=== PATIENT | female | born 1985 | race Caucasian/White ===

== ENCOUNTER 2016-11-05 15:40 | Emergency (ER) | payer MEDICAID ==
[2016-02-21 13:57] VITALS: BMI 60.2
[~2016-11-05 15:40] MED LIST: ALDACTONE25 MG PO; BACTRIM DS TABL1 TAB PO; BAYER CHEWABLE81 MG PO; CARAFATE1 G PO; CYMBALTA20 MG PO; HYZAAR 100-25 T1 TAB PO; LEVOXYL100 MCG PO; METOPROLOL TART50 MG PO; SPECTAZOLE 1 %15 GM TP; VICTOZA0.6 MG/0.1 SQ; WELLBUTRIN100 MG PO; ZANTAC150 MG PO; ZOLOFT50 MG PO
== END 2016-11-05 20:49 | disposition home or self-care (01) ==
LOC: D.ER 15:40
DX: S92.902A Unspecified fracture of left foot, initial encounter for closed fracture (principal); W01.0XXA Fall on same level from slipping, tripping and stumbling without subsequent striking against object, initial encounter; Y93.89 Activity, other specified; Y92.219 Unspecified school as the place of occurrence of the external cause; F41.9 Anxiety disorder, unspecified; Z86.73 Personal history of transient ischemic attack (TIA), and cerebral infarction without residual deficits; E11.9 Type 2 diabetes mellitus without complications; I10 Essential (primary) hypertension

== ENCOUNTER → 2016-11-12 13:09 | Outpatient (CLI) | payer MEDICAID ==
[2016-02-21 13:57] VITALS: BMI 60.2
[~2016-11-12 13:09] MED LIST changes: +ELIQUIS5 MG PO
== END | disposition home or self-care (01) ==
LOC: D.CT 13:09
DX: S92.212A Displaced fracture of cuboid bone of left foot, initial encounter for closed fracture (principal)

== ENCOUNTER 2016-11-15 16:59 | Inpatient (IN) | payer MEDICAID ==
[~2016-11-15] VITALS: Ht 175.3 cm; Wt 187.2 kg
--- NOTE | ~2016-11-15 | CN ---
PATIENT NAME:SYLVESTER NOLEN MEDICAL RECORD: [id number] : 87 LOCATION:[id number] ADMIT DATE: 11/15/16 ACCOUNT: [id number] CONSULTING PHYSICIAN: BRIANNE PATEL MD REFERRING PHYSICIAN: CHAKA JEREZ MD DATE OF CONSULTATION: 11/16/2016 CONSULT REQUESTING PHYSICIAN: Chaka Jerez MD REASON FOR CONSULTATION: Saddle embolus, DVT. HISTORY OF PRESENT ILLNESS: Ms. Nolen is a 30-year-old female; 10-11 days ago, she fractured her left ankle and sprained the right ankle, so she was mainly bed bound and sitting in her recliner. Yesterday, she felt some shortness of breath and the patient went to the bathroom where she became lightheaded and almost blackout. The patient was brought into the ER, workup showed that she has multiple emboli and also saddle embolus. REVIEW OF SYSTEMS: Mainly in the history of present illness. PAST MEDICAL HISTORY: 1. History of cerebrovascular accident 20 years ago. 2. Hypertension. 3. Cardiac workup in April 2015. 4. Suspect sleep apnea. PAST SURGICAL HISTORY: 1. Cholecystectomy. 2. . 3. Kidney stone removed. ALLERGIES: CODEINE AND MORPHINE. PRESENT MEDICATIONS: She is on heparin IV. Her other medication is reviewed. PERSONAL AND SOCIAL HISTORY: The patient is a nonsmoker, nondrinker. FAMILY HISTORY: Unknown. PHYSICAL EXAMINATION: GENERAL: Now, the patient is lying comfortably in bed. She is not in any acute distress. VITAL SIGNS: The blood pressure is 114/54, pulse is 85, respiration is 26, temperature 97.3, SpO2 is 94% on 2 liter nasal cannula. HEENT: Conjunctivae is pink, sclerae nonicteric. NECK: Supple, no JVD. CHEST: The chest excursion is minimal on both sides. No wheeze, no rales. HEART: Rhythm regular, normal sound, no murmur. ABDOMEN: Soft. Bowel sounds present. No hepatosplenomegaly. RECTAL: Deferred. EXTREMITIES: No cyanosis, no clubbing. There is 1+ pedal edema in the left. CENTRAL NERVOUS SYSTEM: The cranial nerves II-XII are intact. The gait was not tested. IMAGING: CTA of the chest: There is a saddle embolus. There are bilateral CONSULT REPORT [id number] SYLVESTER NOLEN multiple emboli. Ultrasound of the lower extremity showed DVT of the left lower extremity. OTHER LABORATORY DATA: CBC: WBC 8.3, hemoglobin 14.1, hematocrit 41.9, the platelet count 282. Chemistry: Sodium 140, potassium is 5.6, BUN is 16, creatinine 0.3. Glucose 107. The fibrinogen level is 4.12. INR is 1.05, PTT was 30.7. IMPRESSION: 1. Acute hypoxic respiratory failure. 2. Submassive pulmonary embolism. 3. Near syncopal episode secondary to pulmonary embolism. 4. Deep venous thrombosis of left lower extremity. 5. Fracture of the left ankle. 6. Hypertension. 7. Morbid obesity. 8. Remote history of cerebrovascular accident. RECOMMENDATION: We will hold the heparin when the tPA has been started. We will keep the heparin for 5 days and start her on p.o. medication. Supplemental oxygen as required. Follow up labs and chest radiograph daily. Check factor V Leiden, other coagulopathy factor. Dr. Jerez, once again thanks for involving me in the care of Ms. Nolen. TRANSINT:[id number] Voice Confirmation ID: [id number] DOCUMENT ID: [id number] BRIANNE PATEL MD CC: CHAKA JEREZ MD [id number] DICTATION DATE: 11/16/16 154 ENTREPRENEURSHIP PROGRAM DIRECTOR: 11/16/16 1637 ADM IN [facility] [address] [id number]
[~2016-11-15 16:59] MED LIST changes: -ELIQUIS5 MG PO
[2016-11-15 18:26] LABS: BASOPHILS 0.2 % (0.0-2.0); EOSINOPHILS 0.8 % (0-7); HEMATOCRIT 44.2 % (36.0-48.0); HEMOGLOBIN 14.9 g/dL (12-16); IMMATURE GRANULOCYTES 0.3 % (0-5); LYMPHOCYTES 20.6 % (15-50); MCH 30.4 pg (26.0-34.0); MCHC 33.7 g/dL (31.0-37.0); MCV 90.2 fL (80.0-100.0); MEAN PLATELET VOLUME 9.7 fL (7.4-10.4); MONOCYTES 6.5 % (2-11); NEUTROPHILS 71.6 % (40-80); PLATELET COUNT 260 10x3/uL (130-400); RDW 12.8 % (11.5-14.5); WBC 8.8 10x3/uL (4.8-10.8)
[2016-11-15 18:41] LABS: ALBUMIN 3.5 g/dL (3.4-5.0); ALKALINE PHOSPHATASE 61 U/L (46-116); ALT (SGPT) 31 U/L (10-68); BILIRUBIN - TOTAL 0.26 mg/dL (0.2-1.3); CALC OSMOLALITY 287 mosm/kg (275-300); CALCIUM 9.2 mg/dL (8.5-10.1); CARBON DIOXIDE 22.2 mmol/L (21.0-32.0); CHLORIDE - SERUM 105 mmol/L (98-107); CREATININE - SERUM 0.6 mg/dL (0.6-1.3); GLUCOSE 137 mg/dL (74-106); POTASSIUM - SERUM 4.6 mmol/L (3.5-5.1); PROTEIN - SERUM 7.6 g/dL (6.4-8.2); SODIUM 142 mmol/L (136-145); UREA NITROGEN 21 mg/dL (7-18); eGFR NON AFRICAN AMERICAN > 90 mL/min (90-120)
[2016-11-15 19:00] LABS: THYROID STIMULATING HORMONE 4.55 uIU/mL (0.36-3.74)
[2016-11-15 19:02] LABS: TROPONIN-I 0.182 ng/mL (0.000-0.060)
[2016-11-16] VITALS (23 sets, daily range): BP systolic 96–143; BP diastolic 54–109; Ht 175.3 cm; Wt 187.2 kg
--- NOTE | 2016-11-16 01:10 | NUR ---
RECEIVED TO ROOM CV6 VIA STRETCHER FROM EMERGENCY DEPARTMENT. DX: PULMOMARY EDEMA. RIGHT HAND PERIPHERAL IV PATENT. O2 AT 2L/NC ON. O2 SAT=94%. B/P=143/85, HR=90, R=18. SHE HAS A FRACTURED LEFT FOOT WITH IMMOBILIZER ON. WILL CONTINUE TO MONITOR.
--- NOTE | 2016-11-16 02:29 | NUR ---
Susu.Alvaro CRUZ CALLED TO GET HEPARIN GTT ORDERED IN THE COMPUTER APPROPRIATELY AND WILL ASK MD ABOUT FOLLOWING HEPARIN GTT PROTOCOL.
--- NOTE | 2016-11-16 02:50 | NUR ---
ASSISTED UP TO BATHROOM WITH ASSIST. SOB WITH EXERTION. SLOW TO GET UP AND DOWN. BACK TO BED AND RECONNECTED TO MONITORING EQUIPMENT.
--- NOTE | 2016-11-16 04:00 | NUR ---
LAYING ON LEFT SIDE. NO ACUTE DISTRESS NOTED.
--- NOTE | 2016-11-16 06:00 | NUR ---
INFORMED OF UPCOMING BLOOD DRAW. DENIES NEEDS. WILL CONTINUE TO MONITOR.
--- NOTE | 2016-11-16 06:25 | NUR ---
PHELBO AT BEDSIDE TO DRAW AM LABS. VISITOR AT BEDSIDE. WILL MONITOR.
[2016-11-16 06:51] LABS: BASOPHILS 0.3 % (0.0-2.0); EOSINOPHILS 1.1 % (0-7); HEMATOCRIT 44.6 % (36.0-48.0); IMMATURE GRANULOCYTES 0.2 % (0-5); LYMPHOCYTES 37.2 % (15-50); MCH 31.1 pg (26.0-34.0); MCHC 33.6 g/dL (31.0-37.0); MCV 92.3 fL (80.0-100.0); MEAN PLATELET VOLUME 9.7 fL (7.4-10.4); MONOCYTES 7.8 % (2-11); NEUTROPHILS 53.4 % (40-80); PLATELET COUNT 248 10x3/uL (130-400); RBC 4.83 10x6/uL (4.00-5.40); WBC 8.8 10x3/uL (4.8-10.8)
[2016-11-16 07:15] LABS: CALC OSMOLALITY 279 mosm/kg (275-300); CALCIUM 9.2 mg/dL (8.5-10.1); CHLORIDE - SERUM 102 mmol/L (98-107); GLUCOSE 107 mg/dL (74-106); SODIUM 140 mmol/L (136-145); UREA NITROGEN 16 mg/dL (7-18)
[2016-11-16 07:16] LABS: CREATININE - SERUM 0.3 mg/dL (0.6-1.3); POTASSIUM - SERUM 5.6 mmol/L (3.5-5.1); eGFR NON AFRICAN AMERICAN > 90 mL/min (90-120)
[2016-11-16 07:22] LABS: APTT 29.4 SECONDS (22.8-39.4); INR 0.98 (0.85-1.17); PROTIME 12.9 SECONDS (11.6-15.0)
--- NOTE | 2016-11-16 08:22 | NUR ---
NOTED LAB RESULTS FOR PTT IS AT 29.4, PT IS ON HEPARIN DRIP PROTOCOL. PROTOCOL 3000 U BOLUS ADMIN VIA PUMP PER PROROCOL. ALSO RATE INCREASED AT THIS TIME FROM 1000U/HOUR TO 1200 U/HOUR. WILL SCHEDULE PTT REDRAW FOR 1430 FOR RECHECK PER PROTOCOL.
--- NOTE | 2016-11-16 09:22 | NUR ---
SPOKE WITH DR PATEL, NOTED NEW ORDER FOR BILATERAL ULTRASOUND TO LOWER EXTREMITIES X 2. [address] ORDER.
--- NOTE | 2016-11-16 09:27 | NUR ---
FAMILY AT BEDSIDE. UPDATE GIVEN. NO ACUTE DISTRESS NOTED. WILL CONTINUE PLAN OF CARE.
--- NOTE | 2016-11-16 11:00 | NUR ---
1100 REASSESSMENT PERFORMED. NO CHANGE.
--- NOTE | 2016-11-16 11:53 | NUR ---
SPOKE WITH DR JEREZ, NOTED NEW ORDER TO START TPA AND DC HEPARIN DRIP. ORDER PLACED AT THIS TIME. WILL CONTINUE PLAN OF CARE.
--- NOTE | 2016-11-16 13:20 | NUR ---
TPA INITIATED ORDERED AT THIS TIME, HEPARIN DRIP DC AT THIS TIME PER ORDERS. PT SITTING UP IN BED AWAKE, DENIES ANY NEEDS. WILL CONTINUE PLAN OF CARE.
[2016-11-16 13:23] LABS: BASOPHILS 0.2 % (0.0-2.0); EOSINOPHILS 1.1 % (0-7); HEMATOCRIT 41.9 % (36.0-48.0); HEMOGLOBIN 14.1 g/dL (12-16); IMMATURE GRANULOCYTES 0.2 % (0-5); LYMPHOCYTES 33.6 % (15-50); MCH 31.1 pg (26.0-34.0); MCHC 33.7 g/dL (31.0-37.0); MCV 92.3 fL (80.0-100.0); MEAN PLATELET VOLUME 9.8 fL (7.4-10.4); MONOCYTES 7.6 % (2-11); NEUTROPHILS 57.3 % (40-80); PLATELET COUNT 282 10x3/uL (130-400); RBC 4.54 10x6/uL (4.00-5.40); RDW 12.9 % (11.5-14.5); WBC 8.3 10x3/uL (4.8-10.8)
[2016-11-16 14:24] LABS: APTT 30.7 SECONDS (22.8-39.4); INR 1.05 (0.85-1.17); PROTIME 13.5 SECONDS (11.6-15.0)
--- NOTE | 2016-11-16 14:26 | NUR ---
UP IN BED AWAKE AT THIS TIME WATCHING TV. DENIES ANY NEEDS. WILL CONTINUE PLAN OF CARE.
--- NOTE | 2016-11-16 14:30 | NUR ---
BED BATH ADMIN AT THIS TIME. NO ACUTE DISTRESS NOTED. WILL CONTINUE PLAN OF CARE.
--- NOTE | 2016-11-16 14:40 | NUR ---
SPOKE WITH DR CANADA TO NOTIFY OF CONSULT, NOTED HE STATED HE IS AWARE OF CONSULT. NO NEW ORDERS.
--- NOTE | 2016-11-16 15:08 | NUR ---
NEW ORDER PER DR PATEL. CHANGE CURRENT ORDER OF TPA TO 100MG/100ML; GIVE 10ML BOLUS NOW THEN ADMIN THE REMAINING 90MG OVER 2 HOURS, RECHECK PTT WHEN COMPLETE AND CHECK Q4H UNTIL PTT IS UNDER 80. WHEN HEPARIN DRIP IS RESTARTED, START RATE AT 1200 U WITH NO BOLUS. WILL PLACE ORDERS.
--- NOTE | 2016-11-16 15:11 | NUR ---
REASSESSMENT PERFORMED. NO CHANGE NOTED. PT DENIES ANY NEEDS. NO ACUTE DISTRESS NOTED. WILL CONTINUE PLAN O FCARE.
--- NOTE | 2016-11-16 17:01 | NUR ---
TPA COMPLETE AT THIS TIME. STAT PTT ORDERED AT THIS TIME PER ORDERS. WILL RESTART HEPARIN DRIP AT 1200 UNITS PER ORDERS AFTER PTT DRAW BY LAB.
--- NOTE | 2016-11-16 17:27 | NUR ---
STAT PTT NOT DRAWNED AT THIS TIME BY LAB. CALLED LAB TO SEE WHEN THEY WILL DRAW STAT LAB, THEY STATED THEY WOULD BE HERE TO DRAW. WILL START HEPARIN DRIP AFTER LAB DRAWS STAT PTT.
--- NOTE | 2016-11-16 17:42 | NUR ---
CALLED LAB AGAIN AT THIS TIME TO HAVE STAT PTT DRAWN AT THIS TIME. NOTED LAB STATED THEY WERE ON THEIR WAY AT THIS TIME TO DRAW LAB.
[2016-11-16 18:07] LABS: BASOPHILS 0.3 % (0.0-2.0); EOSINOPHILS 1.2 % (0-7); HEMATOCRIT 45.1 % (36.0-48.0); HEMOGLOBIN 14.8 g/dL (12-16); IMMATURE GRANULOCYTES 0.3 % (0-5); LYMPHOCYTES 20.2 % (15-50); MCH 30.7 pg (26.0-34.0); MCHC 32.8 g/dL (31.0-37.0); MCV 93.6 fL (80.0-100.0); MEAN PLATELET VOLUME 9.5 fL (7.4-10.4); MONOCYTES 10.1 % (2-11); NEUTROPHILS 67.9 % (40-80); PLATELET COUNT 217 10x3/uL (130-400); RBC 4.82 10x6/uL (4.00-5.40); RDW 12.7 % (11.5-14.5); WBC 11.9 10x3/uL (4.8-10.8)
--- NOTE | 2016-11-16 18:14 | NUR ---
UP IN BED AWAKE AT THIS TIME VISITING WITH FAMILY. NO ACUTE DISTRESS NOTED. WILL CONTINUE PLAN OF CARE.
[2016-11-16 18:18] LABS: INR 1.34 (0.85-1.17); PROTIME 16.5 SECONDS (11.6-15.0)
--- NOTE | 2016-11-16 18:22 | NUR ---
LAB DRAWN HAS BEEN DONE. HEPARIN DRIP STARTED AT THIS TIME PER ORDERS. WILL CONTINUE PLAN OF CARE.
--- NOTE | 2016-11-16 19:10 | NUR ---
ASSESSMENT COMPLETED. ALERT AND ORIENTED TO PERSON, PLACE AND TIME. O2 @ 2L VIA NC, PRACHI LUNGS DIMINISHED IN THE BASES. RT SHOULDER PIV, SITE WITHOUT REDNESS OR EDEMA, SL. RT HAND PIV, SITE WITHOUT REDNESS OR EDEMA WITH HEPARIN @ 1200 UNITS/HR VIA PUMP. DENIES ANY PAIN OR NEEDS AT THIS TIME. SR ON THE MONITOR.
--- NOTE | 2016-11-16 19:14 | NUR ---
SCANT AMOUNT OF BRIGHT RED BLOOD TO LETTY AREA. ASSESSED AREA, NOTED BLEEDING HAD COME FROM A SMALL SCRATCH TO OUTSIDE VAGINAL AREA. PT IS ON ANTICOAGULANTS. URINATED VIA BEDPAN. LETTY CARE PROVIDED. TOTAL BED CHANGE PROVIDED. NO ACUTE DISTRESS NOTED. WILL CONTINUE PLAN OF CARE.
--- NOTE | 2016-11-16 21:00 | NUR ---
FAMILY AT BEDSIDE. UPDATE GIVEN.
--- NOTE | 2016-11-16 21:40 | NUR ---
UP TO BSC, TOLLERATED WELL.
--- NOTE | 2016-11-16 23:00 | NUR ---
REASSESSMENT COMPLETED. DENIES ANY NEEDS AT THIS TIME. SR ON THE MONITOR.
[2016-11-17] VITALS (25 sets, daily range): BP systolic 89–152; BP diastolic 48–85
--- NOTE | 2016-11-17 00:53 | NUR ---
LAB HERE FOR BLOOD DRAW.
[2016-11-17 01:11] LABS: BASOPHILS 0.5 % (0.0-2.0); EOSINOPHILS 1.7 % (0-7); HEMATOCRIT 41.3 % (36.0-48.0); HEMOGLOBIN 13.7 g/dL (12-16); IMMATURE GRANULOCYTES 0.4 % (0-5); LYMPHOCYTES 36.4 % (15-50); MCH 30.6 pg (26.0-34.0); MCHC 33.2 g/dL (31.0-37.0); MCV 92.4 fL (80.0-100.0); MEAN PLATELET VOLUME 9.5 fL (7.4-10.4); PLATELET COUNT 221 10x3/uL (130-400); RBC 4.47 10x6/uL (4.00-5.40); RDW 12.7 % (11.5-14.5)
[2016-11-17 01:13] LABS: WBC 8.4 10x3/uL (4.8-10.8)
--- NOTE | 2016-11-17 01:29 | NUR ---
INCREASED HEPARIN GTT TO 1300 UNITS/HR VIA PUMP PER SS. WILL CONT TO MONITOR.
[2016-11-17 01:42] LABS: APTT 35.1 SECONDS (22.8-39.4); INR 1.21 (0.85-1.17); PROTIME 15.1 SECONDS (11.6-15.0)
--- NOTE | 2016-11-17 01:50 | NUR ---
NEW PTT RESULTS ARE 35. 3000 UNIT BOLUS OF HEPARIN INFUSED AND RATE INCREASED TO 1400 UNITS/HR VIA PUMP. WILL CONT TO MONITOR.
--- NOTE | 2016-11-17 03:00 | NUR ---
REASSESSMENT COMPLETED. DENIES ANY PAIN OR NEEDS AT THIS TIME. SR ON THE MONITOR.
--- NOTE | 2016-11-17 05:00 | NUR ---
EYES CLOSED, RESP EVEN AND UNLABORED. WILL CONT TO MONITOR.
--- NOTE | 2016-11-17 06:00 | NUR ---
FAMILY AT BEDSIDE. UPDATE GIVEN. WILL CONT TO MONITOR.
[2016-11-17 06:38] LABS: BASOPHILS 0.3 % (0.0-2.0); EOSINOPHILS 2.3 % (0-7); HEMATOCRIT 40.9 % (36.0-48.0); HEMOGLOBIN 13.5 g/dL (12-16); IMMATURE GRANULOCYTES 0.4 % (0-5); LYMPHOCYTES 33.6 % (15-50); MCH 30.5 pg (26.0-34.0); MCV 92.5 fL (80.0-100.0); MEAN PLATELET VOLUME 9.5 fL (7.4-10.4); MONOCYTES 8.3 % (2-11); NEUTROPHILS 55.1 % (40-80); PLATELET COUNT 218 10x3/uL (130-400); RBC 4.42 10x6/uL (4.00-5.40); RDW 12.7 % (11.5-14.5); WBC 7.5 10x3/uL (4.8-10.8)
[2016-11-17 06:45] LABS: APTT 33.8 SECONDS (22.8-39.4); INR 1.15 (0.85-1.17); PROTIME 14.5 SECONDS (11.6-15.0)
--- NOTE | 2016-11-17 06:48 | NUR ---
UP TO BSC. TOLLERATED WELL.
[2016-11-17 07:01] LABS: CALC OSMOLALITY 280 mosm/kg (275-300); CARBON DIOXIDE 27.2 mmol/L (21.0-32.0); CHLORIDE - SERUM 102 mmol/L (98-107); GLUCOSE 116 mg/dL (74-106); SODIUM 140 mmol/L (136-145); UREA NITROGEN 16 mg/dL (7-18)
[2016-11-17 07:05] LABS: CREATININE - SERUM 0.5 mg/dL (0.6-1.3); POTASSIUM - SERUM 3.7 mmol/L (3.5-5.1); eGFR NON AFRICAN AMERICAN > 90 mL/min (90-120)
--- NOTE | 2016-11-17 07:22 | NUR ---
UP IN BED AWAKE AT THIS TIME. DENIES ANY NEEDS. NO ACUTE DISTRESS NOTED. WILL CONTINUE PLAN OF CARE.
--- NOTE | 2016-11-17 09:16 | NUR ---
METOPROLOL HELD THIS AM, PULSE RATE NOTED RANGING FROM 57-63 AND BLOOD PRESSURE NOTED AT 109/62 MAP 77. HELD AT THIS TIME PER NURSING JUDGEMENT. WILL CONTINUE PLAN OF CARE.
--- NOTE | 2016-11-17 10:26 | NUR ---
SPOKE WITH DR JEREZ WHO REQUESTED PHARMACY TO BE CONTACTED TO SEE IF HER INSURANCE COVERS XARELTO OR ELIQUIS. WILL CONTACT PTS PHARMACY.
[2016-11-17 11:55] LABS: BASOPHILS 0.3 % (0.0-2.0); EOSINOPHILS 2.1 % (0-7); HEMATOCRIT 41.6 % (36.0-48.0); HEMOGLOBIN 13.9 g/dL (12-16); IMMATURE GRANULOCYTES 0.3 % (0-5); MCH 30.8 pg (26.0-34.0); MCHC 33.4 g/dL (31.0-37.0); MEAN PLATELET VOLUME 9.5 fL (7.4-10.4); MONOCYTES 6.8 % (2-11); NEUTROPHILS 63.5 % (40-80); PLATELET COUNT 224 10x3/uL (130-400); RBC 4.52 10x6/uL (4.00-5.40); RDW 12.6 % (11.5-14.5); WBC 7.2 10x3/uL (4.8-10.8)
[2016-11-17 12:24] LABS: APTT 35.5 SECONDS (22.8-39.4); INR 1.09 (0.85-1.17)
--- NOTE | 2016-11-17 14:02 | NUR ---
NOTED PTT RESTULTS OF 35.5. HEPARIN BOLUS ADMIN AT THIS TIME PER PROTOCOL ORDERS AND RATE INCREASED FROM 1600U/H TO 1800U/H PER PROTOCOL. BOLUS ADMIN PER PUMP. NO ACUTE DISTRESS NOTED. WILL CONTINUE PLAN OF CARE.
--- NOTE | 2016-11-17 14:11 | NUR ---
AWAKE IN BED AT THIS TIME. DENIES ANY NEEDS. NO ACUTE DISTRESS NOTED. WILL CONTINUE PLAN OF CARE.
--- NOTE | 2016-11-17 15:57 | NUR ---
NO CHANGE. VSS. NO COMPLAINT OF PAIN OR DISCOMFORT. WILL CONTINUE PLAN OF CARE.
--- NOTE | 2016-11-17 16:37 | NUR ---
UP IN BED WATCHING TV AND EATING SUPPER AT THIS TIME. DENIES ANY NEEDS. NO ACUTE DISTRESS NOTED. WILL CONTINUE PLAN OF CARE.
--- NOTE | 2016-11-17 17:19 | NUR ---
UP IN BED WATCHING TV AT THIS TIME. NO ACUTE DISTRESS NOTED. WILL CONTINUE PLAN FO CARE.
[2016-11-17 17:59] LABS: BASOPHILS 0.4 % (0.0-2.0); EOSINOPHILS 2.2 % (0-7); HEMATOCRIT 42.7 % (36.0-48.0); HEMOGLOBIN 14.3 g/dL (12-16); IMMATURE GRANULOCYTES 0.1 % (0-5); LYMPHOCYTES 26.3 % (15-50); MCH 31.1 pg (26.0-34.0); MCHC 33.5 g/dL (31.0-37.0); MCV 92.8 fL (80.0-100.0); MEAN PLATELET VOLUME 9.5 fL (7.4-10.4); MONOCYTES 7.7 % (2-11); NEUTROPHILS 63.3 % (40-80); PLATELET COUNT 238 10x3/uL (130-400); RDW 12.6 % (11.5-14.5)
[2016-11-17 18:11] LABS: APTT 35.3 SECONDS (22.8-39.4)
[2016-11-17 18:12] LABS: INR 0.98 (0.85-1.17); PROTIME 12.8 SECONDS (11.6-15.0)
--- NOTE | 2016-11-17 19:05 | NUR ---
SPOKE WITH PT PHARMACY ON [facility] AND NOTED INSURANCE COVERES BOTH XARELTO AND ELIQUIS AND ARE BOTH $4. THIS WAS DONE PER DR JEREZ REQUEST. DR JEREZ NOTIFIED. NO FURTHER ORDERS AT THIS TIME. WILL CONTINUEPLAN OF CARE.
--- NOTE | 2016-11-17 19:25 | NUR ---
Received patient awake in bed watching tv, Assessment completed per flowsheet. Patient is AO x4, demeanor is pleasant and cooperative. Eyes PERRLA @ 3mm with brisk response, sclera is white. S1/S2 noted with patient NSR on telemetry with HR 87, rhythmic and regular. Breathing is slightly shallow and unlabored, lung sounds diminished all lobes. O2 sat 96% on 2L via NC, no reported difficulty breathing. Abdomen is round and soft, bowel sounds active x4. Patient uses bedside commode with assistance, liquid yellow stool noted. All pulses palpable with cap refill <3 sec, full ROM all extremities. L foot fracture with brace, skin is warm to touch. 20g PIV noted R hand, patent with fluids infusing. Full bed bath/linen change performed, patient positioned for comfort. Denies pain or other needs at this time, all VSS and will continue to monitor.
--- NOTE | 2016-11-17 21:00 | NUR ---
Family at bedside for visitation, no questions from family at this time. All VSS and will continue to monitor.
--- NOTE | 2016-11-17 22:57 | NUR ---
Reassessment completed per flowsheet, patient resting in bed with eyes open. Patient NSR on telemetry with HR 74, rhythmic and regular. Breathing is even and effortless on 2L via NC, O2 sat 98%. All extremities warm to touch with pulses palpable, cap refill <3 sec. Patient assisted to bedside commode, 350ml liquid yellow stool noted. Patient denies pain or other needs at this time, all VSS and will continue to monitor.
[2016-11-17 23:55] LABS: BASOPHILS 0.2 % (0.0-2.0); EOSINOPHILS 1.8 % (0-7); HEMATOCRIT 40.4 % (36.0-48.0); HEMOGLOBIN 13.6 g/dL (12-16); IMMATURE GRANULOCYTES 0.2 % (0-5); LYMPHOCYTES 35.5 % (15-50); MCH 30.6 pg (26.0-34.0); MCHC 33.7 g/dL (31.0-37.0); MEAN PLATELET VOLUME 9.4 fL (7.4-10.4); MONOCYTES 7.3 % (2-11); PLATELET COUNT 252 10x3/uL (130-400); RBC 4.44 10x6/uL (4.00-5.40); RDW 12.6 % (11.5-14.5); WBC 8.1 10x3/uL (4.8-10.8)
[2016-11-18] VITALS (21 sets, daily range): BP systolic 92–134; BP diastolic 55–88
--- NOTE | 2016-11-18 00:05 | NUR ---
PTT resulted, Heparin protocol followed. 3000 unit bolus given and rate increased 200 units/hr. Will recheck at 0600.
[2016-11-18 00:06] LABS: APTT 35.5 SECONDS (22.8-39.4); INR 0.96 (0.85-1.17); PROTIME 12.6 SECONDS (11.6-15.0)
--- NOTE | 2016-11-18 01:00 | NUR ---
Patient resting in bed with eyes closed, breathing is even and unlabored. All VSS with no further needs at this time, will continue to monitor.
--- NOTE | 2016-11-18 03:03 | NUR ---
Reassessment completed per flowsheet, patient resting in bed with eyes closed. Patient NSR on telemetry with HR 72, rhythmic and regular. Breathing is shallow and unlabored on 2L via NC, O2 sat 100%. All extremities warm to touch with palpable pulses, cap refill <3 sec. Patient denies pain or other needs at this time, all VSS and will continue to monitor.
--- NOTE | 2016-11-18 05:05 | NUR ---
Patient resting in bed with eyes closed, breathing is slightly shallow and unlabored. Full bed bath/linen change performed, positioned for comfort. Patient denies pain or other needs at this time, all VSS and will continue to monitor.
--- NOTE | 2016-11-18 06:22 | NUR ---
APTT SAMPLE COLLECTED BY LAB AT 0620, WILL ADJUST HEPARIN WHEN RESULTED.
[2016-11-18 06:35] LABS: BASOPHILS 0.4 % (0.0-2.0); EOSINOPHILS 2.7 % (0-7); HEMATOCRIT 40.8 % (36.0-48.0); HEMOGLOBIN 13.6 g/dL (12-16); IMMATURE GRANULOCYTES 0.4 % (0-5); LYMPHOCYTES 32.9 % (15-50); MCH 30.6 pg (26.0-34.0); MCHC 33.3 g/dL (31.0-37.0); MCV 91.7 fL (80.0-100.0); MEAN PLATELET VOLUME 9.5 fL (7.4-10.4); MONOCYTES 7.3 % (2-11); NEUTROPHILS 56.3 % (40-80); PLATELET COUNT 233 10x3/uL (130-400); RBC 4.45 10x6/uL (4.00-5.40); RDW 12.5 % (11.5-14.5); WBC 7.9 10x3/uL (4.8-10.8)
[2016-11-18 06:44] LABS: APTT 35.7 SECONDS (22.8-39.4)
[2016-11-18 06:51] LABS: CALC OSMOLALITY 277 mosm/kg (275-300); CALCIUM 9.1 mg/dL (8.5-10.1); CARBON DIOXIDE 27.8 mmol/L (21.0-32.0); CHLORIDE - SERUM 100 mmol/L (98-107); GLUCOSE 123 mg/dL (74-106); POTASSIUM - SERUM 3.6 mmol/L (3.5-5.1); SODIUM 138 mmol/L (136-145); UREA NITROGEN 16 mg/dL (7-18)
[2016-11-18 06:53] LABS: CREATININE - SERUM 0.7 mg/dL (0.6-1.3); eGFR NON AFRICAN AMERICAN > 90 mL/min (90-120)
--- NOTE | 2016-11-18 07:30 | NUR ---
ASSUMED CARE OF PT. SHIFT ASSESSMENT COMPLETE. SEE FLOWSHEET FOR DETAILS. PT AWAKE AND ALERT. NO DISTRESS NOTED. AWAITING BREAKFAST.
--- NOTE | 2016-11-18 09:07 | NUR ---
FAMILY AT BEDSIDE FOR 0900 VISITATION. PT AWAKE, SITTING UP IN BED. NO DISTRESS NOTED.
--- NOTE | 2016-11-18 10:19 | NUR ---
NUTRITION MONITORING & EVAL CHART REVIEWED, PT VISIT. TOLERATING REG DIET. PT REPORTS GOOD PO INTAKE. RD FOLLOWING
--- NOTE | 2016-11-18 10:35 | NUR ---
PT ASSISTED UP TO BEDSIDE COMMODE. BM X1. URINE OUTPUT 500ML
--- NOTE | 2016-11-18 11:17 | NUR ---
SPOKE WITH DR MA, IF PTT STILL UNDER 40 AT NEXT DRAW, WANTS THE BOLUS GIVEN AND THEN CONTINUOUS RATE CHANGED TO 3000 UNITS/HR. DISCUSSED PT GOING TO FLOOR.
[2016-11-18 12:41] LABS: BASOPHILS 0.4 % (0.0-2.0); EOSINOPHILS 2.1 % (0-7); HEMATOCRIT 41.8 % (36.0-48.0); HEMOGLOBIN 13.8 g/dL (12-16); IMMATURE GRANULOCYTES 0.4 % (0-5); LYMPHOCYTES 31.8 % (15-50); MCH 30.4 pg (26.0-34.0); MCV 92.1 fL (80.0-100.0); MEAN PLATELET VOLUME 9.6 fL (7.4-10.4); MONOCYTES 6.6 % (2-11); NEUTROPHILS 58.7 % (40-80); PLATELET COUNT 261 10x3/uL (130-400); RBC 4.54 10x6/uL (4.00-5.40); RDW 12.5 % (11.5-14.5); WBC 8.2 10x3/uL (4.8-10.8)
[2016-11-18 12:51] LABS: INR 1.01 (0.85-1.17); PROTIME 13.1 SECONDS (11.6-15.0)
[2016-11-18 12:56] LABS: APTT 43.9 SECONDS (22.8-39.4)
--- NOTE | 2016-11-18 13:03 | NUR ---
PT PTT 43.9 -ADJUSTED RATE ACCORDING TO PROTOCOL OF UP BY 100 UNITS/HR. SINCE WAS NOT UNDER [address] MA EARLIER, DID NOT INCREASE RATE TO 3000 UNITS/HR. SET AT 2500 UNITS/HR UNTIL NEXT PTT.
--- NOTE | 2016-11-18 14:30 | NUR ---
PIV IN RIGHT UPPER ARM/SHOULDER REMOVED. TIP INTACT. WAS NO LONGER PATENT.
--- NOTE | 2016-11-18 14:50 | NUR ---
COMPLETE BED BATH PROVIDED. HAIR WASHED. FULL LINEN CHANGE. PT HAS REDNESS IN LETTY-AREA. SMALL AMOUNT OF BLOOD ON WASHCLOTH UPON WASHING. BLEEDING HAD STOPPED WHEN PT DRIED WITH TOWEL. PT WAS OFF OF O2 WHILE BATHING. 95% ON ROOM AIR. HAVE LEFT OFF O2 AND MONITORING SATURATIONS.
--- NOTE | 2016-11-18 18:04 | NUR ---
FAMILY AT BEDSIDE FOR VISITATION
--- NOTE | 2016-11-18 18:26 | NUR ---
PTT NOT YET DRAWN FOR 17:15 DRAW. CALLED LAB AND SPOKE WITH VIKI. SOMEONE IS SUPPOSED TO BE ON THE WAY TO DRAW LAB
--- NOTE | 2016-11-18 19:15 | NUR ---
Assessment completed per flowsheet, received patient awake in bed watching TV. Patient AO x4, demeanor is pleasant and cooperative. Eyes PERRLA @ 3mm with brisk response, sclera is white. S1/S2 noted NSR on telemetry with HR 84, rhythmic and regular. Breathing is even and effortless on room air, lung sounds clear bilateral upper with diminished lower. Abdomen is soft and non-tender, bowel sounds Active x4. Patient ambulates to bedside commode with light assistance, no reported difficulties. Patient states both ankles "sprained" and L foot fractured, braces in use bilateral. All pulses palpable with skin warm to touch in all extremities, cap refill <3 sec. 20g PIV noted R hand, patent with fluids infusing. Patient denies pain or other needs at this time, all VSS and will continue to monitor.
--- NOTE | 2016-11-18 21:40 | NUR ---
NOTIFIED BY LAB THAT SAMPLE WAS NOT COLLECTED, SAMPLE DRAWN BY RN AND SENT FOR TESTING. WILL ADJUST HEPARIN PER PROTOCOL WHEN RESULTED.
[2016-11-18 22:43] LABS: INR 0.98 (0.85-1.17); PROTIME 12.8 SECONDS (11.6-15.0)
[2016-11-18 22:44] LABS: APTT 42.1 SECONDS (22.8-39.4)
--- NOTE | 2016-11-18 23:00 | NUR ---
APTT sample resulted, Heparin increased by 100 units/hr with no bolus given per protocol. Will recheck in 6 hrs.
--- NOTE | 2016-11-18 23:00 | NUR ---
Patient resting in bed with eyes closed. Patient NSR on telemetry with HR 72, rhythmic and regular. Breathing is even and unlabored on room air, O2 sat 96%. No further needs at this time, all VSS and will continue to monitor.
--- NOTE | 2016-11-19 01:00 | NUR ---
Patient resting in bed with eyes closed, breathing is even and unlabored. No further needs at this time, all VSS and will continue to monitor.
[2016-11-19 03:00] VITALS: BP 103/73
--- NOTE | 2016-11-19 03:18 | NUR ---
Patient resting is bed with eyes closed. Patient NSR on telmetry with HR 65, rhythmic and regular. Breathing is even and unlabored on room air, O2 sat 94%. All pulses palpable with skin warm to touch in all extremities, Cap refill <3 sec. Ankle braces in use bilateral, removed for skin inspection and replaced. Patient denies pain or other needs at this time, all VSS and will continue to monitor.
[2016-11-19 05:59] LABS: CALC OSMOLALITY 277 mosm/kg (275-300); CALCIUM 9.2 mg/dL (8.5-10.1); CARBON DIOXIDE 25.4 mmol/L (21.0-32.0); CHLORIDE - SERUM 101 mmol/L (98-107); CREATININE - SERUM 0.7 mg/dL (0.6-1.3); GLUCOSE 120 mg/dL (74-106); MAGNESIUM - SERUM 2.1 mg/dL (1.8-2.4); PHOSPHOROUS 5.5 mg/dL (2.5-4.9); POTASSIUM - SERUM 3.5 mmol/L (3.5-5.1); SODIUM 138 mmol/L (136-145); UREA NITROGEN 15 mg/dL (7-18); eGFR NON AFRICAN AMERICAN > 90 mL/min (90-120)
[2016-11-19 07:30] VITALS: BP 113/66
--- NOTE | 2016-11-19 07:30 | NUR ---
REC'D REPORT AND REUMED CARE, SLEEPING WITH NO SIGNS OF DISTRESS, AROUSABLE TO VERBAL STIMULI, ORIENTED X4, DENIES PAIN, AESSESSMENT COMPLETE PER FLOWSHEET, VSS, SELF REPOSISITIONS, CALL LIGHT IN REACH, NO NEEDS AT THIS TIME
[2016-11-19 10:19] LABS: ANA REFLEX - DIRECT Negative (Negative)
[2016-11-19 11:00] VITALS: BP 109/60
--- NOTE | 2016-11-19 11:05 | NUR ---
BLOOD DRAWN FROM LEFT AC FOR PTT, DR MACRAIO HERE FOR EVAL, NEW ORDERS GIVEN, WILL INCREASE HEPARIN TO 3000 UNITS/HR POST PTT RESULT AND THEN FOLLOW HEPARIN S/S PROTOCAL
--- NOTE | 2016-11-19 12:00 | NUR ---
LUNCH TRAY TO BEDSIDE, PATIENT HAVING NOSE BLEED, COLD TOWELS GIVEN, STATES NO IS DRY, BLEEDING STOPPED AFTER A MINUTE, HEPARIN IN USE AT 3000 UNITS HOUR PER ORDER, FAMILY AT BEDSIDE, STATUS UPDATED, VOICES NO NEEDS AT THIS TIME
[2016-11-19 13:17] LABS: ACLA - IGG AB <9 GPL U/mL (0-14); ACLA - IGM AB <9 MPL U/mL (0-12)
[2016-11-19 15:00] VITALS: BP 118/66
--- NOTE | 2016-11-19 15:09 | NUR ---
BACK TO BED WITH ASSIST, RECONNECTED TO MONITOR, VSS, DENIES PAIN, CALL LIGHT IN PLACE, ASSESSMENT COMPLETE PER FLOWSHEET, VOICES NO NEEDS AT THIS TIME, WILL CONTINUE WITH POC
--- NOTE | 2016-11-19 19:53 | NUR ---
PT TRANSFERRED FROM CVICU VIA WHEELCHAIR, AWAKE, ALERT, ORIENTED. PT WAS ABLE TO TRANSFER TO BED WITH MINIMAL ASSIST. PT DENIES ANY ACUTE NEEDS. HEPARIN GTT INFUSING ORDERED. CONTINUE TO MONITOR PT CLOSELY.
[2016-11-20 01:21] LABS: INR 0.98 (0.85-1.17); PROTIME 12.9 SECONDS (11.6-15.0)
[2016-11-20 01:22] LABS: APTT 75.5 SECONDS (22.8-39.4)
[2016-11-20 01:25] VITALS: BP 132/86
--- NOTE | 2016-11-20 02:46 | NUR ---
PT LYING IN BED, EYES CLOSED, RESPIRATIONS EVEN AND UNLABORED. CONTINUE TO MONITOR CLOSELY.
[2016-11-20 03:09] LABS: PROTEIN S - FREE 131 % (57-157); PROTEIN S - FUNCTIONAL 124 % (63-140); PROTEIN S - TOTAL 173 % (60-150)
[2016-11-20 05:45] VITALS: BP 110/79
--- NOTE | 2016-11-20 05:54 | NUR ---
PT AWAKE, ALERT, ORIENTED. HEPARIN D\C'D @ 0600 THIS AM PER WRITTEN ORDER. PT DENIES ANY ACUTE NEEDS. CONTINUE TO MONITOR CLOSELY.
[2016-11-20 06:47] LABS: CALC OSMOLALITY 277 mosm/kg (275-300); CALCIUM 8.9 mg/dL (8.5-10.1); CARBON DIOXIDE 25.2 mmol/L (21.0-32.0); CHLORIDE - SERUM 101 mmol/L (98-107); GLUCOSE 118 mg/dL (74-106); POTASSIUM - SERUM 3.8 mmol/L (3.5-5.1); SODIUM 138 mmol/L (136-145); UREA NITROGEN 14 mg/dL (7-18)
[2016-11-20 06:52] LABS: CREATININE - SERUM 0.5 mg/dL (0.6-1.3); eGFR NON AFRICAN AMERICAN > 90 mL/min (90-120)
--- NOTE | 2016-11-20 07:30 | NUR ---
PT LAYING TO LEFT SIDE SLEEPING NO S/S DISTRESS NOTED WILL CONT TO MONITOR.
[2016-11-20 08:00] VITALS: BP 132/72
[2016-11-20 08:23] LABS: LUPUS - INTERPRETATION Comment: (()); LUPUS - THROMBIN TIME 20.4 sec (0.0-20.9); LUPUS - dRVVT 47.5 sec (0.0-44.0); PTT-LA 41.3 sec (0.0-43.6)
[2016-11-20 12:00] VITALS: BP 150/57
[2016-11-20 13:20] LABS: ANTITHROMBIN III ACTIVITY 110 % (75-135)
--- NOTE | 2016-11-20 15:37 | NUR ---
Patient Name: SYLVESTER NOLEN Admission Status: ER Accout number: [id number] Admission Date: 11-15-2016 : 1985 Admission Diagnosis:SADDLE EMBOLUS OF PULMONARY ARTERY W/O ACUTE COR PULMON Attending: SOLITARIO Current LOS: 5 Anticipated DC Date: Planned Disposition: Home Primary Insurance: [place] [employer] Discharge Planning Comments: * Is the patient Alert and Oriented? Yes 0 * How many steps to enter\exit or inside your home? 1 0 * PCP DR. GUADARRAMA 0 * Pharmacy [facility] [address] 0 * Preadmission Environment Home with Family 0 * ADLs Independent 0 * Equipment None 0 * Other Equipment NO MEDICAL EQUIPMENT PROVIDER PREFERENCE 0 * List name and contact numbers for known caregivers / representatives who currently or will assist patient after discharge: CYNDIE HERRON, SISTER, 0 * Community resources currently utilized None 0 * Please name any agencies selected above. NONE 0 * Additional services required to return to the preadmission environment? No 0 * Can the patient safely return to the preadmission environment? Yes 0 * Has this patient been hospitalized within the prior 30 days at any hospital? No 0 CM MET WITH PT IN ROOM TO DISCUSS DISCHARGE PLANNING AND NEEDS. PT REPORTS LIVING AT HOME INDEPENDENTLY WITH HER PARENTS AND DAUGHTER. PT HAS NO MEDICAL EQUIPMENT AND NO OUTSIDE SERVICES ASSISTING IN THE HOME. CM DISCUSSED AVAILABILITY OF HOME HEALTH, REHAB SERVICES AND MEDICAL EQUIPMENT. PT DENIES DISCHARGE NEEDS, REPORTS HER PARENTS WILL PICK HER UP FOR DISCHARGE HOME. Student Services Coordinator: Oziel Orozco
--- NOTE | 2016-11-20 17:56 | NUR ---
PT SITTING UP ON SIDE OF BED. FAMILY AT BEDSIDE DENIES NEEDS WILL CONT TO MONITOR.
--- NOTE | 2016-11-20 19:50 | NUR ---
PT RESTING IN BED WATCHING TV. PT HAS AN IV TO HER LEFT HAND, PATENT AND SL. PEDAL PULSES ARE PRESENT, WEAK. PT DENIES NEEDS. WCTM. BED LOW. CL IN REACH.
[2016-11-20 20:00] VITALS: BP 117/69
--- NOTE | 2016-11-20 21:30 | NUR ---
PT HS MEDS ADMINISTERED, EXCEPT ELIQUIS. PT C/O ITCHING ON ARMS AND CHEST. ARMS AND CHEST ARE PINK IN COLOR. WILL NOTIFY DR. MIMA TYSON. CL IN REACH.
--- NOTE | 2016-11-20 21:55 | NUR ---
REC'D CALL FROM DANUTA RUTLEDGE. CONTINUE WITH ELIQUMARILUZ AND ORDER 25MG BENADRYL IV Q6P FOR ITCHING PER DR MA.
[2016-11-20 22:07] LABS: PLASMINOGEN ACTIVITY 133 % (70-150)
--- NOTE | 2016-11-20 22:30 | NUR ---
ADMINISTERED ELIQUIS AND PRN BENADRYL. WCTM. BED LOW. CL IN REACH.
--- NOTE | 2016-11-20 23:49 | NUR ---
PT RESTING, EYES CLOSED. RR ARE EVEN AND UNLABORED. WCTM. BED LOW. CL IN REACH.
[2016-11-21] VITALS: BP 120/79
[2016-11-21 04:00] VITALS: BP 112/79
--- NOTE | 2016-11-21 04:29 | NUR ---
PT HAS BEEN RESTING WITH EYES CLOSED ALL NIGHT. RR HAVE BEEN EVEN AND UNLABORED. WCTM. BED LOW. CL INR EACH.
[2016-11-21 05:59] LABS: CALC OSMOLALITY 279 mosm/kg (275-300); CALCIUM 9.3 mg/dL (8.5-10.1); CARBON DIOXIDE 27.5 mmol/L (21.0-32.0); CHLORIDE - SERUM 101 mmol/L (98-107); CREATININE - SERUM 0.7 mg/dL (0.6-1.3); GLUCOSE 92 mg/dL (74-106); POTASSIUM - SERUM 3.9 mmol/L (3.5-5.1); SODIUM 140 mmol/L (136-145); UREA NITROGEN 15 mg/dL (7-18); eGFR NON AFRICAN AMERICAN > 90 mL/min (90-120)
[2016-11-21 07:56] VITALS: BP 133/87
--- NOTE | 2016-11-21 08:20 | NUR ---
KATELYNN MOLINA- RECEIVED REPORT FROM .NET ARCHITECT NURSE CHING VACA. PT IS CURRENTLY LAYING IN BED ON BACK WITH EYES OPEN RESTING. ON MONITOR SHOWING SB, HR 58. ON ROOM AIR. IV SEEN TO RIGHT HAND THAT IS CURRENTLY SALINE LOCKED. CAST SEEN TO LEFT FOOT, BRACE SEEN TO RIGHT FOOT. NO NEED AT CURRENT TIME. WILL CONTINUE TO MONITOR AND CONTINUE WITH PLAN OF CARE.
[2016-11-21 11:38] VITALS: BP 125/70
[2016-11-21] MEDS ORDERED: ELIQUIS5 MG PO (12:30)
--- NOTE | 2016-11-21 14:53 | NUR ---
D/C INSTRUCTIONS EXPLAINED TO PT. D/C PAPERWORK SIGNED BY PT AND PLACED IN CHART. IV REMOVED WITH CATH TIP INTACT, TOLERATED WELL. HEART MONITOR REMOVED AND GIVEN BACK TO [place] IN TELEMETRY. AWAITING FATHER TO GET BACK TO TAKE HER HOME. WILL CONTINUE TO MONITOR.
[2016-11-21 15:22] LABS: MITOCHONDRIAL ANTIBODY 4.4 Units (0.0-20.0); PROTEIN C - ANTIGEN 129 % (60-150); PROTEIN C - FUNCTIONAL 190 % (73-180)
--- NOTE | 2016-11-21 15:35 | NUR ---
1515- PT D/C VIA WHEELCHAIR ACCOMPANIED BY HOSPITAL STAFF AND FAMILY.
--- NOTE | 2016-11-22 14:54 | EC ---
PATIENT:SYLVESTER NOLEN DATE OF SERVICE: 11/15/16 SEX: F MEDICAL RECORD: [id number] DATE OF : [birth year] LOCATION:D. D.213 AGE OF PATIENT: 30 ADMISSION DATE: 11/15/16 REFERRING PHYSICIAN: INTERPRETING PHYSICIAN: ROBINSON HILL M.D. ECHOCARDIOGRAM REPORT ECHO CHARGES 4 ECHO COMPLETE CLINICAL DIAGNOSIS: PULMONARY EMBOLIS ASSESS CARDIAC FUNCTION ECHOCARDIOGRAPHIC MEASUREMENTS (adult normal given) AC root (d.<3.7cm) 3.5 LV Septum d (<1.2 cm> 1.7 Valve Excursion 1.8 LV Septum (systole) 2.2 Left Atria (s.<4.0cm> 3.6 LVPW d(<1.2cm) 1.5 RV (d.<2.3cm) 4.7 LVPW (sytole) 1.8 LV diastole(<5.6CM) 3.9 MV E-F(>70mm/sec) LV systole 2.1 LVOT Diameter 2.0 MV exc.(>10mm) 1.6 Est.ejection fraction (50-75%) Pericardial Effusion N DOPPLER: LVIT A 44.0 E 65.0 LA RVSP 37 LVOT 75 AOP1/2T Asc. Ao 109 RVOT 81 RA PA 120 AV Gradient Peak 4.8 AV Mean 2.5 AV Area 1.7 MV Gradient Peak 3.62 MV Mean 1.36 MV Area COMMENTS: Embossing Press Operator Molded Goods: Jeff LUBIN Single Spindle Screw Machine Operator:2 Dr. Hill TAPE# PACS DATE OF SERVICE: 11/16/2016 REFERRING PHYSICIAN: Chaka Millan MD DESCRIPTION: Left ventricle demonstrates left ventricular hypertrophy. No wall motion abnormalities are noted. Ejection fraction is 55%. Mitral valve is structurally normal. There is no regurgitation or prolapse seen. Left atrium is normal in size. The aortic valve is trileaflet. There is no stenosis or regurgitation seen. Right ventricle is mildly dilated. Tricuspid valve is structurally normal. There is mild regurgitation noted. Right atrium is normal ECHOCARDIOGRAM REPORT [id number] SYLVESTER NOLEN size. There is no pericardial effusion seen. IMPRESSION: 1. Left ventricular hypertrophy with preserved ejection fraction of 55%. 2. Mild tricuspid regurgitation. 3. Right ventricular systolic pressure is measured at 37 mmHg. TRANSINT:[id number] Voice Confirmation ID: [id number] DOCUMENT ID: [id number] ROBINSON HILL M.D. at 1454 CC: [id number] DICTATION DATE: 11/17/16751 PANEL MACHINE OPERATOR: 11/17/16 1220 DIS IN 11/21/16 [place] [id number] [place] [id number]
== END 2016-11-21 15:36 | disposition home or self-care (01) | DRG 175 ==
LOC: D.ER 16:59 → D.M2 23:14 → D.CVICU 23:14 → D.M2 11-19 19:47
PROVIDERS: Emergency Medicine; Family Medicine; Internal Medicine Pulmonary Disease; ADMIT Family Medicine
DX: I26.92 Saddle embolus of pulmonary artery without acute cor pulmonale (principal); J96.01 Acute respiratory failure with hypoxia; I82.4Z2 Acute embolism and thrombosis of unspecified deep veins of left distal lower extremity; Z68.44 Body mass index [BMI] 60.0-69.9, adult; E03.9 Hypothyroidism, unspecified; K21.9 Gastro-esophageal reflux disease without esophagitis; I10 Essential (primary) hypertension; E66.01 Morbid (severe) obesity due to excess calories; Z86.73 Personal history of transient ischemic attack (TIA), and cerebral infarction without residual deficits

== ENCOUNTER → 2017-05-26 14:21 | Outpatient (CLI) | payer MEDICAID ==
[2016-11-16 09:15] VITALS: BMI 61.3
[~2017-05-26 14:21] MED LIST changes: +ELIQUIS5 MG PO
== END | disposition home or self-care (01) ==
LOC: D.US 14:00
DX: Z86.718 Personal history of other venous thrombosis and embolism (principal)

== ENCOUNTER → 2017-06-09 08:29 | Outpatient (CLI) | payer MEDICAID ==
[2016-11-16 09:15] VITALS: BMI 61.3
--- NOTE | 2017-06-20 16:56 | EC ---
PATIENT:SYLVESTER NOLEN DATE OF SERVICE: 06/09/17 SEX: F MEDICAL RECORD: [id number] DATE OF : [birth year] LOCATION:[facility] AGE OF PATIENT: 31 ADMISSION DATE: 06/09/17 REFERRING PHYSICIAN: INTERPRETING PHYSICIAN: PARVIN KNIGHT MD ECHOCARDIOGRAM REPORT ECHO CHARGES 4 ECHO COMPLETE CLINICAL DIAGNOSIS: PULMONARY HTN ECHOCARDIOGRAPHIC MEASUREMENTS (adult normal given) AC root (d.<3.7cm) 3.3 cm LV Septum d (<1.2 cm> 1.2 cm Valve Excursion 2.3 cm LV Septum (systole) 1.6 cm Left Atria (s.<4.0cm> 4.1 cm LVPW d(<1.2cm) 1.2 cm RV (d.<2.3cm) 3.4 cm LVPW (sytole) 1.8 cm LV diastole(<5.6CM) 5.9 cm MV E-F(>70mm/sec) cm LV systole 3.6 cm LVOT Diameter 2.0 cm MV exc.(>10mm) cm Est.ejection fraction (50-75%) % Pericardial Effusion N DOPPLER: LVIT cm/sec A 36.0 cm/sec E 109 cm/sec LA cm/sec RVSP 39.0 mmHg LVOT 101 cm/sec AOP1/2T m/s Asc. Ao 131 cm/sec RVOT 59.0 cm/sec RA cm/sec PA 95.0 cm/sec AV Gradient Peak 6.8 mmHg AV Mean 3.7 mmHg AV Area 2.3 cm MV Gradient Peak 7.4 mmHg MV Mean 1.7 mmHg MV Area cm COMMENTS: Orthopedics Teacher: Robert ALANISOE Technical Service Rep: 1 Dr. Knight TAPE# PACS DATE OF SERVICE: 06/09/2017 Echocardiogram FINDINGS: 1. Left ventricular chamber size is upper limits of normal, left ventricular systolic function is normal. Overall ejection fraction estimated at 35%. 2. Left atrium is mildly dilated at 4.1 cm. Right atrium and right ventricular chamber sizes are as well mildly dilated. 3. Valvular structures have normal structure and motion. ECHOCARDIOGRAM REPORT [id number] SYLVESTER NOLEN 4. Doppler interrogation reveals trace mitral regurgitation, trace tricuspid regurgitation. No other valvular insufficiency or stenosis. 5. No evidence of pericardial effusion or left ventricular thrombus. TRANSINT:[id number] Voice Confirmation ID: [id number] DOCUMENT ID: [id number] PARVIN KNIGHT MD at 1656 CC: [id number] DICTATION DATE: 06/10/17 1200 NUCLEAR PHYSICIAN: 06/10/17 1213 DEP CLI 06/09/17 [place] [id number] [place] [id number]
== END | disposition home or self-care (01) ==
LOC: D.ECHO 08:29
DX: I10 Essential (primary) hypertension (principal)

== ENCOUNTER → 2018-02-06 12:59 | Outpatient (CLI) | payer MEDICAID ==
[2016-11-16 09:15] VITALS: BMI 61.3
== END | disposition home or self-care (01) ==
LOC: D.CT 12:59
DX: R06.00 Dyspnea, unspecified (principal)

== ENCOUNTER → 2018-04-15 16:00 | Outpatient (CLI) | payer BC ==
[2016-11-16 09:15] VITALS: BMI 61.3
== END | disposition home or self-care (01) ==
LOC: D.US 16:00
DX: M79.605 Pain in left leg (principal)

== ENCOUNTER → 2018-09-02 12:27 | Outpatient (CLI) | payer BC ==
[2016-11-16 09:15] VITALS: BMI 61.3
== END | disposition home or self-care (01) ==
LOC: D.US 12:00
DX: M79.605 Pain in left leg (principal)

== ENCOUNTER 2019-02-19 11:37 | Emergency (ER) | payer BC ==
[~2019-02-19] VITALS: Ht 175.3 cm; Wt 148.6 kg
[2019-02-19 11:46] VITALS: Ht 175.3 cm; Wt 148.6 kg
[2019-02-19] MEDS ORDERED: DOXYCYCLINE HY100 M2 PO (11:48)
[2019-02-19] MEDS ORDERED: BUSPAR5 MG PO (11:49)
[2019-02-19 12:13] LABS: BASOPHILS 0.4 % (0-2); EOSINOPHILS 1.1 % (0-7); HEMATOCRIT 39.4 % (36.0-48.0); HEMOGLOBIN 13.5 g/dL (12-16); IMMATURE GRANULOCYTES 0.2 % (0-5); LYMPHOCYTES 37.8 % (15-50); MCH 30.2 pg (26.0-34.0); MCHC 34.3 g/dL (31.0-37.0); MCV 88.1 fL (80.0-100.0); MEAN PLATELET VOLUME 9.2 fL (7.4-10.4); MONOCYTES 6.2 % (2-11); NEUTROPHILS 54.3 % (40-80); PLATELET COUNT 218 10x3/uL (130-400); RBC 4.47 10x6/uL (4.00-5.40); RDW 12.9 % (11.5-14.5); WBC 4.5 10x3/uL (4.8-10.8)
[2019-02-19 12:28] LABS: ALBUMIN 3.6 g/dL (3.4-5.0); ALKALINE PHOSPHATASE 53 U/L (46-116); ALT (SGPT) 21 U/L (10-68); BILIRUBIN - TOTAL 0.55 mg/dL (0.2-1.3); CALC OSMOLALITY 282 mosm/kg (275-300); CARBON DIOXIDE 27.5 mmol/L (21.0-32.0); CHLORIDE - SERUM 106 mmol/L (98-107); CREATININE - SERUM 0.6 mg/dL (0.6-1.3); GLUCOSE 105 mg/dL (74-106); POTASSIUM - SERUM 3.8 mmol/L (3.5-5.1); PROTEIN - SERUM 7.2 g/dL (6.4-8.2); SODIUM 141 mmol/L (136-145); UREA NITROGEN 17 mg/dL (7-18); eGFR NON AFRICAN AMERICAN > 90 mL/min (90-120)
[2019-02-19 12:45] LABS: APTT 30.8 SECONDS (22.8-39.4); INR 1.13 (0.85-1.17)
[2019-02-19 12:46] LABS: D-DIMER-QUANTITATIVE < 0.27 ug/mLFEU (0.20-0.54)
[2019-02-19 15:12] LABS: HCG SERUM NEGATIVE (NEGATIVE)
[2019-02-19 16:03] VITALS: BP 131/86
== END 2019-02-19 15:59 | disposition home or self-care (01) ==
LOC: D.ER 11:37
PROVIDERS: Family Medicine
DX: M79.652 Pain in left thigh (principal)

== ENCOUNTER → 2019-08-04 14:53 | Outpatient (CLI) | payer MEDICAID ==
[2019-02-19 11:46] VITALS: BMI 48.4
[~2019-08-04 14:53] MED LIST changes: +BUSPAR5 MG PO; +DOXYCYCLINE HY100 M2 PO
== END | disposition home or self-care (01) ==
LOC: D.CT 14:53
PROVIDERS: ATTEND Nurse Practitioner Family
DX: R31.21 Asymptomatic microscopic hematuria (principal)

== ENCOUNTER 2019-09-07 20:12 | Emergency (ER) | payer MEDICAID ==
[~2019-09-07] VITALS: Ht 175.3 cm; Wt 158.2 kg
[2019-09-07 20:27] VITALS: Ht 175.3 cm; Wt 158.2 kg
[2019-09-07] MEDS ORDERED: [UNRECOGNIZED DRUG - REMARK] (20:28)
[2019-09-07] MEDS ORDERED: ALDACTONE25 MG PO (20:29)
[2019-09-07 20:48] LABS: APPEARANCE HAZY (CLEAR); BILIRUBIN NEGATIVE (NEGATIVE); COLOR RED (YELLOW); GLUCOSE NEGATIVE (NEGATIVE); KETONE NEGATIVE (NEGATIVE); NITRITE NEGATIVE (NEGATIVE); PROTEIN TRACE mg/dL (NEGATIVE); UROBILINOGEN NORMAL (NORMAL)
[2019-09-07 20:48] LABS: HCG URINE NEGATIVE (NEGATIVE)
[2019-09-07 20:49] LABS: BACTERIA FEW /hpf (NEGATIVE); EPITHELIAL CELLS 0-5 /hpf (0-5); RED CELLS - URINE >50 /hpf (0-5); WHITE CELLS - URINE 0-5 /hpf (NEGATIVE)
[2019-09-07 21:26] LABS: BASOPHILS 0.2 % (0-2); EOSINOPHILS 1.9 % (0-7); HEMATOCRIT 38.1 % (36.0-48.0); HEMOGLOBIN 12.7 g/dL (12-16); IMMATURE GRANULOCYTES 0.2 % (0-5); LYMPHOCYTES 41.6 % (15-50); MCH 30.4 pg (26.0-34.0); MCHC 33.3 g/dL (31.0-37.0); MCV 91.1 fL (80.0-100.0); MEAN PLATELET VOLUME 9.2 fL (7.4-10.4); MONOCYTES 8.3 % (2-11); NEUTROPHILS 47.8 % (40-80); PLATELET COUNT 251 10x3/uL (130-400); RBC 4.18 10x6/uL (4.00-5.40); RDW 12.5 % (11.5-14.5); WBC 5.7 10x3/uL (4.8-10.8)
[2019-09-07] MEDS ORDERED: ZOFRAN ODT4 MG/UDTAB PO (21:31)
[2019-09-07] MEDS ORDERED: ULTRAM50 MG PO (21:31)
[2019-09-07 21:32] LABS: CALC OSMOLALITY 287 mosm/kg (275-300); CALCIUM 8.2 mg/dL (8.5-10.1); CARBON DIOXIDE 23.7 mmol/L (21.0-32.0); CHLORIDE - SERUM 108 mmol/L (98-107); CREATININE - SERUM 0.6 mg/dL (0.6-1.3); GLUCOSE 124 mg/dL (74-106); SODIUM 143 mmol/L (136-145); UREA NITROGEN 19 mg/dL (7-18); eGFR NON AFRICAN AMERICAN > 90 mL/min (90-120)
[2019-09-07 21:40] LABS: ALBUMIN 3.2 g/dL (3.4-5.0); ALKALINE PHOSPHATASE 58 U/L (46-116); ALT (SGPT) 17 U/L (10-68); AMYLASE - SERUM 37 U/L (25-115); BILIRUBIN - TOTAL 0.18 mg/dL (0.2-1.3); LIPASE 80 U/L (73-393); PROTEIN - SERUM 6.5 g/dL (6.4-8.2)
[2019-09-07 21:46] LABS: TROPONIN-I < 0.017 ng/mL (0.000-0.060)
[2019-09-07 22:30] VITALS: BP 139/83
== END 2019-09-07 22:30 | disposition home or self-care (01) ==
LOC: D.ER 20:12
PROVIDERS: Family Medicine
DX: R10.9 Unspecified abdominal pain (principal); R31.9 Hematuria, unspecified; N20.0 Calculus of kidney; Z86.73 Personal history of transient ischemic attack (TIA), and cerebral infarction without residual deficits; I10 Essential (primary) hypertension; Z86.718 Personal history of other venous thrombosis and embolism

== ENCOUNTER → 2019-10-21 09:25 | Outpatient (CLI) | payer MEDICAID ==
[2019-10-07 07:44] VITALS: BMI 48.3
[~2019-10-21 09:25] MED LIST changes: +B-12; +CELEXA10 MG PO; +ULTRAM50 MG PO; +VITAMIN D10000 UNI1 PO; +ZOFRAN ODT4 MG/UDTAB PO
== END | disposition home or self-care (01) ==
LOC: D.RAD 09:25
PROVIDERS: ATTEND Urology
DX: N20.0 Calculus of kidney (principal)

== ENCOUNTER 2019-10-28 09:38 | Day surgery (SDC) | payer MEDICAID ==
[~2019-10-28] VITALS: Ht 180.3 cm; Wt 161.9 kg
[2019-10-28 09:55] LABS: HEMATOCRIT 40.3 % (36.0-48.0); HEMOGLOBIN 13.4 g/dL (12-16); MCH 30.1 pg (26.0-34.0); MCHC 33.3 g/dL (31.0-37.0); MCV 90.6 fL (80.0-100.0); MEAN PLATELET VOLUME 8.8 fL (7.4-10.4); RBC 4.45 10x6/uL (4.00-5.40); RDW 12.6 % (11.5-14.5); WBC 5.7 10x3/uL (4.8-10.8)
[2019-10-28 10:03] LABS: CALC OSMOLALITY 287 mosm/kg (275-300); CALCIUM 8.7 mg/dL (8.5-10.1); CARBON DIOXIDE 26.1 mmol/L (21.0-32.0); CHLORIDE - SERUM 108 mmol/L (98-107); CREATININE - SERUM 0.6 mg/dL (0.6-1.3); GLUCOSE 131 mg/dL (74-106); POTASSIUM - SERUM 4.2 mmol/L (3.5-5.1); SODIUM 142 mmol/L (136-145); UREA NITROGEN 20 mg/dL (7-18); eGFR NON AFRICAN AMERICAN > 90 mL/min (90-120)
[2019-10-28 10:24] VITALS: BP 136/84; Ht 180.3 cm; Wt 161.9 kg
[2019-10-28 10:31] LABS: HCG URINE NEGATIVE (NEGATIVE)
--- NOTE | 2019-10-28 13:19 | OP ---
PATIENT NAME: SYLVESTER NOLEN MEDICAL RECORD: [id number] :87 LOCATION:[facility] ADMISSION DATE: SURGEON: RAJEEV PETERSON MD DATE OF OPERATION: 10/28/2019 SURGEON: Rajeev Peterson MD ANESTHESIA: General anesthesia by Janell Johns CRNA DIAGNOSIS: Right 4-mm renal stone. PROCEDURE: Right extracorporeal shock wave lithotripsy (ESWL) times 2500 shocks. FINDINGS: Radiodense right upper pole 4-mm stone. ESTIMATED BLOOD LOSS: None. CLINICAL HISTORY: This is a 33-year-old female who had a history of a stroke at a young age. She has a hypercoagulable condition. She is on Eliquis. We discovered that she had two 4-mm stones in the right kidney, one of which had caused her renal colic. She had a right ureteral stent insertion. About 3 weeks ago, she had right ESWL to treat the stones. They were highly mobile and one stone was completely destroyed, but the other stone did not get destroyed. She comes now to have the remaining stone destroyed. She still has the ureteral stent in place. She was given Ancef family nurse practitioner to the OR. DESCRIPTION OF PROCEDURE: The patient was placed on the treatment table and we fluoroscoped her to be sure that we could target the stone. The target was in a posterior michelle and it was targetable. She was then given induction of general anesthesia. The stone was targeted in 2 planes and 2500 shocks were given to the stone to completely break it up. The patient will be sent home today. I will see her back in followup in 2 weeks' time with a KUB. If this patient is stone free at that time, the stent can come out. I have asked her to hold off restarting the Eliquis for 2 days. TRANSINT:[id number] Voice Confirmation ID: [id number] DOCUMENT ID: [id number] RAJEEV PETERSON MD at 1319 CC: [id number] DICTATION DATE: 10/28/19 1223 HIGH SCHOOL HISTORY TEACHER: 10/28/19 1308 [address] [place] [id number] [place] [address]
== END 2019-10-28 13:57 | disposition home or self-care (01) ==
LOC: D.OPS 09:38 → D.PAN 09:40 → D.OPS 09:40 → D.PAN 09:45 → D.OPS 12:00 → D.PAN 12:40 → D.OPS 12:55 → D.PAN 13:15 → D.OPS 13:15
PROVIDERS: Anesthesiology; ATTEND Urology
DX: N20.0 Calculus of kidney (principal); I10 Essential (primary) hypertension; K21.9 Gastro-esophageal reflux disease without esophagitis

== ENCOUNTER 2019-11-04 09:15 | Inpatient (IN) | payer MEDICAID ==
[~2019-11-04] VITALS: Ht 180.3 cm; Wt 159.5 kg
[2019-11-04 09:38] VITALS: Ht 180.3 cm; Wt 159.5 kg
[2019-11-04 10:15] VITALS: BP 121/83
[2019-11-04 10:21] LABS: CALC OSMOLALITY 274 mosm/kg (275-300); CALCIUM 8.8 mg/dL (8.5-10.1); CARBON DIOXIDE 27.3 mmol/L (21.0-32.0); CHLORIDE - SERUM 98 mmol/L (98-107); CREATININE - SERUM 0.8 mg/dL (0.6-1.3); GLUCOSE 155 mg/dL (74-106); POTASSIUM - SERUM 3.4 mmol/L (3.5-5.1); SODIUM 136 mmol/L (136-145); UREA NITROGEN 12 mg/dL (7-18); eGFR NON AFRICAN AMERICAN 88 mL/min (90-120)
[2019-11-04 10:28] LABS: HCG SERUM NEGATIVE (NEGATIVE)
[2019-11-04 10:36] LABS: ALBUMIN 3.3 g/dL (3.4-5.0); ALKALINE PHOSPHATASE 66 U/L (30-120); ALT (SGPT) 16 U/L (10-68); BILIRUBIN - TOTAL 0.96 mg/dL (0.2-1.3); MAGNESIUM - SERUM 2.1 mg/dL (1.8-2.4); THYROID STIMULATING HORMONE 1.86 uIU/mL (0.36-3.74)
--- NOTE | 2019-11-04 10:50 | NUR ---
CRITICAL LAB: D-DIMER 1.17 DR KEYS NOTIFIED
[2019-11-04 11:08] VITALS: BP 130/78
[2019-11-04 11:14] LABS: BASOPHILS 0.1 % (0-2); EOSINOPHILS 0 % (0-7); HEMATOCRIT 38.6 % (36.0-48.0); IMMATURE GRANULOCYTES 0.3 % (0-5); LYMPHOCYTES 5.8 % (15-50); MCH 30.4 pg (26.0-34.0); MCHC 33.7 g/dL (31.0-37.0); MCV 90.4 fL (80.0-100.0); MEAN PLATELET VOLUME 9.1 fL (7.4-10.4); MONOCYTES 12.9 % (2-11); NEUTROPHILS 80.9 % (40-80); RBC 4.27 10x6/uL (4.00-5.40); RDW 12.7 % (11.5-14.5); WBC 6.8 10x3/uL (4.8-10.8)
[2019-11-04 11:16] LABS: PLATELET COUNT 205 10x3/uL (130-400)
[2019-11-04 11:27] LABS: BACTERIA MANY /hpf (NEGATIVE); BILIRUBIN NEGATIVE (NEGATIVE); EPITHELIAL CELLS 0-5 /hpf (0-5); GLUCOSE NEGATIVE (NEGATIVE); KETONE NEGATIVE (NEGATIVE); NITRITE POSITIVE (NEGATIVE); RED CELLS - URINE RARE /hpf (0-5); SPECIFIC GRAVITY 1.025 (1.005-1.020); UROBILINOGEN NORMAL (NORMAL); WHITE CELLS - URINE >50 /hpf (NEGATIVE)
[2019-11-04 12:08] VITALS: BP 136/88
[2019-11-04 12:45] VITALS: BP 121/85
--- NOTE | 2019-11-04 13:21 | NUR ---
RECEIVED PT FROM ER. PT IS AAO AND UP WITH ASSIST. PT LYING SEMI FOWLERS. CALL LIGHT W/I REACH. FAMILY AT BEDSIDE. RR EVEN AND UNLABORED ON RA. VSS AND WNL. LEVAQUIN CURRENTLY INFUSING W/NS@125ML/HR VIA L.AC PIV. NO S/S OF DISTRESS NOTED. PT DENIES ANY NEEDS. WILL CTM.
[2019-11-04 20:00] VITALS: BP 131/90
--- NOTE | 2019-11-04 20:00 | NUR ---
PT. IN BED, EYES CLOSED, RESP EVEN AND UNLABORED, NO DISTRESS NOTED, IV TO LEFT AC, NO REDNESS OR SWELLING NOTED, CL IN REACH, SR UP X 2.
[2019-11-05] VITALS: BP 151/94
--- NOTE | 2019-11-05 03:07 | NUR ---
I have reviewed this patient and I concur with the Shift Assessment completed by the Licensed Practical Nurse today this shift.
[2019-11-05 04:00] VITALS: BP 142/95
[2019-11-05 05:05] LABS: BASOPHILS 0.2 % (0-2); EOSINOPHILS 0.4 % (0-7); HEMATOCRIT 33.2 % (36.0-48.0); HEMOGLOBIN 11.4 g/dL (12-16); IMMATURE GRANULOCYTES 0.2 % (0-5); LYMPHOCYTES 14.7 % (15-50); MCH 31.2 pg (26.0-34.0); MCHC 34.3 g/dL (31.0-37.0); MEAN PLATELET VOLUME 9.5 fL (7.4-10.4); MONOCYTES 16.1 % (2-11); NEUTROPHILS 68.4 % (40-80); PLATELET COUNT 183 10x3/uL (130-400); RBC 3.65 10x6/uL (4.00-5.40); RDW 12.7 % (11.5-14.5); WBC 4.8 10x3/uL (4.8-10.8)
[2019-11-05 06:33] LABS: CALC OSMOLALITY 271 mosm/kg (275-300); CALCIUM 8.1 mg/dL (8.5-10.1); CHLORIDE - SERUM 104 mmol/L (98-107); CREATININE - SERUM 0.6 mg/dL (0.6-1.3); GLUCOSE 108 mg/dL (74-106); POTASSIUM - SERUM 3.5 mmol/L (3.5-5.1); SODIUM 136 mmol/L (136-145); UREA NITROGEN 10 mg/dL (7-18); eGFR NON AFRICAN AMERICAN > 90 mL/min (90-120)
[2019-11-05 08:52] VITALS: BP 134/91
[2019-11-05] MEDS ORDERED: LEVAQUIN750 MG PO (09:01)
--- NOTE | 2019-11-05 11:34 | NUR ---
PT'S DAILY DOSE OF LEVAQUIN GIVEN IV PRIOR TO DISCHARGE. INSTRUCTIONS REVIEWED AND IV REMOVED. TO FRONT DOOR VIA WHEELCHAIR.
--- NOTE | 2019-11-05 15:36 | MORECARE ---
CASE MANAGEMENT DISCHARGE SUMMARY PATIENT: SYLVESTER NOLEN UNIT: [id number] ADM DATE: 11/04/19 AGE: 33 : [birth year] SEX: F ROOM/BED: D.2102 AUTHOR: DAVIDA,DOC PHYSICIAN: REFERRING PHYSICIAN: DANIEL FABIAN MD DATE OF SERVICE: 11/05/19 Discharge Plan Patient Name: SYLVESTER NOLEN Facility: [facility]:[place] : 1985 Planned Disposition: Home Anticipated Discharge Date: 11/05/19 Discharge Date: 11/05/2019 Expected LOS: 1 Initial Reviewer: [email or web address] Initial Review Date: 11/05/2019 Generated: 11/05/19 4:36 pm Comments DCP- Discharge Planning Updated by [email or web address]: Oziel Orozco on 11/05/19 2:[address] Patient Name: SYLVESTER NOLEN Admission Status: ER Accout number: [id number] Admission Date: 11-04-2019 : 1985 Admission Diagnosis: Attending: DANIEL FABIAN Current LOS: 1 Anticipated DC Date: 11-05-2019 Planned Disposition: Home [place]: [place] [employer] Discharge Planning Comments: CM MET WITH PT IN ROOM TO DISCUSS DISCHARGE PLANNING AND NEEDS. PT REPORTS LIVING AT HOME INDEPENDENTLY WITH HER BOYFRIEND. PT HAS NO MEDICAL EQUIPMENT AND NO OUTSIDE SERVICES ASSISTING IN THE HOME. CM DISCUSSED AVAILABILITY OF HOME HEALTH, REHAB SERVICES AND MEDICAL EQUIPMENT. PT DENIES DISCHARGE NEEDS, REPORTS HER BROTHER WILL PICK HER UP FOR DISCHARGE HOME. CUSTOMER RELATIONS ADVISOR NURSE NOTIFIED. Answering Service Telephone Operator: Oziel Orozco DCPIA - Discharge Planning Initial Assessment Updated by [email or web address]: Oziel Orozco on 11/05/19 3:35 pm * Is the patient Alert and Oriented? Yes * How many steps to enter\exit or inside your home? * PCP DR GUADARRAMA * Pharmacy [facility] [address] * Preadmission Environment Home with Family * ADLs Independent * Equipment None * Other Equipment NO MEDICAL EQUIPMENT PROVIDER PREFERENCE * List name and contact numbers for known caregivers / representatives who currently or will assist patient after discharge: CYNDIE HERRON, SISTER, * Verbal permission to speak to the caregivers and representatives has been obtained from the patient. Yes * Community resources currently utilized None * Please name any agencies selected above. NONE * Additional services required to return to the preadmission environment? No * Can the patient safely return to the preadmission environment? Yes * Has this patient been hospitalized within the prior 30 days at any hospital? No Patient Name: SYLVESTER NOLEN Page [id number] at 1536 All edits/amendments must be made on the electronic document DICTATION DATE: 11/05/19 153 EPIC APPLICATION COORDINATOR: TRENA 11/05/19 153 RPT#: [id number] DC DATE:11/05/19 STATUS: DIS IN [facility] [address] [place] [address] END OF REPORT
== END 2019-11-05 12:07 | disposition home or self-care (01) | DRG 690 ==
LOC: D.ER 09:15 → D.M2 12:05
PROVIDERS: Emergency Medicine; ADMIT Internal Medicine Nephrology; ATTEND Internal Medicine Nephrology
DX: N12 Tubulo-interstitial nephritis, not specified as acute or chronic (principal); E87.6 Hypokalemia; I10 Essential (primary) hypertension; F41.8 Other specified anxiety disorders; E03.9 Hypothyroidism, unspecified; Z86.73 Personal history of transient ischemic attack (TIA), and cerebral infarction without residual deficits; Z86.718 Personal history of other venous thrombosis and embolism

== ENCOUNTER 2020-01-18 17:10 | Emergency (ER) | payer MEDICAID ==
[~2020-01-18] VITALS: Ht 180.3 cm; Wt 170.9 kg
[~2020-01-18 17:10] MED LIST changes: +LEVAQUIN750 MG PO
[2020-01-18 17:14] VITALS: BP 164/83; Ht 180.3 cm; Wt 170.9 kg
[2020-01-18] MEDS ORDERED: MEDROL DOSE PACK4 MG PO (17:50)
[2020-01-18] MEDS ORDERED: ACETAMINOPHEN500 M1 PO (17:50)
[2020-01-18] MEDS ORDERED: CYCLOBENZAPRINE10 MG PO (17:50)
== END 2020-01-18 18:20 | disposition home or self-care (01) ==
LOC: D.ER 17:10
DX: M54.5 Low back pain (principal); M79.18 Myalgia, other site; T14.8XXA Other injury of unspecified body region, initial encounter; Z86.73 Personal history of transient ischemic attack (TIA), and cerebral infarction without residual deficits; E07.9 Disorder of thyroid, unspecified; I10 Essential (primary) hypertension

== ENCOUNTER → 2020-04-10 15:33 | Outpatient (CLI) | payer MEDICAID ==
[2020-01-18 17:14] VITALS: BMI 52.5
[~2020-04-10 15:33] MED LIST changes: +ACETAMINOPHEN500 M1 PO; +CYCLOBENZAPRINE10 MG PO; +MEDROL DOSE PACK4 MG PO
== END | disposition home or self-care (01) ==
LOC: D.CT 15:30
PROVIDERS: ATTEND Internal Medicine Hematology & Oncology
DX: I26.99 Other pulmonary embolism without acute cor pulmonale (principal)

== ENCOUNTER 2020-04-26 06:15 | Emergency (ER) | payer MEDICAID ==
[~2020-04-26] VITALS: Ht 180.3 cm; Wt 170.9 kg
[2020-04-26 07:10] VITALS: Ht 180.3 cm; Wt 170.9 kg
[2020-04-26 08:04] LABS: BASOPHILS 0.1 % (0-2); EOSINOPHILS 0.6 % (0-7); HEMATOCRIT 36.3 % (36.0-48.0); HEMOGLOBIN 12.1 g/dL (12-16); IMMATURE GRANULOCYTES 0.2 % (0-5); LYMPHOCYTES 10.3 % (15-50); MCHC 33.3 g/dL (31.0-37.0); MCV 90.1 fL (80.0-100.0); MEAN PLATELET VOLUME 8.9 fL (7.4-10.4); MONOCYTES 6.9 % (2-11); NEUTROPHILS 81.9 % (40-80); PLATELET COUNT 212 10x3/uL (130-400); RBC 4.03 10x6/uL (4.00-5.40); RDW 12.7 % (11.5-14.5); WBC 8.5 10x3/uL (4.8-10.8)
[2020-04-26 08:13] LABS: APTT 28.2 SECONDS (22.8-39.4); CALC OSMOLALITY 279 mosm/kg (275-300); CALCIUM 8.6 mg/dL (8.5-10.1); CARBON DIOXIDE 21.3 mmol/L (21.0-32.0); CHLORIDE - SERUM 106 mmol/L (98-107); CREATININE - SERUM 0.7 mg/dL (0.6-1.3); INR 0.95 (0.85-1.17); POTASSIUM - SERUM 3.6 mmol/L (3.5-5.1); PROTIME 12.7 SECONDS (11.6-15.0); SODIUM 138 mmol/L (136-145); UREA NITROGEN 14 mg/dL (7-18); eGFR NON AFRICAN AMERICAN > 90 mL/min (90-120)
[2020-04-26 08:14] LABS: D-DIMER-QUANTITATIVE < 0.27 ug/mLFEU (0.20-0.54); GLUCOSE 161 mg/dL (74-106)
[2020-04-26 08:18] LABS: ALBUMIN 3.5 g/dL (3.4-5.0); ALKALINE PHOSPHATASE 47 U/L (30-120); ALT (SGPT) 15 U/L (10-68); PROTEIN - SERUM 6.8 g/dL (6.4-8.2)
[2020-04-26] MEDS ORDERED: AUGMENTIN 875-11 TAB PO (08:33)
[2020-04-26 09:20] VITALS: BP 135/85
== END 2020-04-26 09:20 | disposition home or self-care (01) ==
LOC: D.ER 06:15
PROVIDERS: Family Medicine
DX: L03.115 Cellulitis of right lower limb (principal); M79.671 Pain in right foot; I10 Essential (primary) hypertension

== ENCOUNTER 2020-05-23 21:22 | Inpatient (IN) | payer MEDICAID ==
[~2020-05-23] VITALS: Ht 180.3 cm; Wt 170.9 kg
[~2020-05-23 21:22] MED LIST changes: +AUGMENTIN 875-11 TAB PO
[2020-05-23 22:22] VITALS: BP 133/79
[2020-05-23 23:11] LABS: BASOPHILS 0.2 % (0-2); HEMATOCRIT 40.6 % (36.0-48.0); HEMOGLOBIN 13.4 g/dL (12-16); IMMATURE GRANULOCYTES 0.2 % (0-5); LYMPHOCYTES 21.8 % (15-50); MCH 30.2 pg (26.0-34.0); MCV 91.4 fL (80.0-100.0); MEAN PLATELET VOLUME 9.1 fL (7.4-10.4); MONOCYTES 8.3 % (2-11); NEUTROPHILS 68.5 % (40-80); PLATELET COUNT 249 10x3/uL (130-400); RBC 4.44 10x6/uL (4.00-5.40); RDW 12.7 % (11.5-14.5); WBC 10.2 10x3/uL (4.8-10.8)
[2020-05-23 23:25] LABS: CALC OSMOLALITY 273 mosm/kg (275-300); CALCIUM 9.1 mg/dL (8.5-10.1); CARBON DIOXIDE 30.8 mmol/L (21.0-32.0); CHLORIDE - SERUM 100 mmol/L (98-107); CREATININE - SERUM 0.9 mg/dL (0.6-1.3); POTASSIUM - SERUM 3.1 mmol/L (3.5-5.1); SODIUM 137 mmol/L (136-145); UREA NITROGEN 12 mg/dL (7-18); eGFR NON AFRICAN AMERICAN 76 mL/min (90-120)
[2020-05-23 23:33] LABS: GLUCOSE 107 mg/dL (74-106)
[2020-05-23 23:40] LABS: ALBUMIN 3.7 g/dL (3.4-5.0); ALKALINE PHOSPHATASE 67 U/L (30-120); ALT (SGPT) 5 U/L (10-68); C-REACTIVE PROTEIN 14.2 mg/dL (0.0-0.9); PROTEIN - SERUM 8.1 g/dL (6.4-8.2)
[2020-05-24] VITALS: BP 151/96
[2020-05-24 05:00] VITALS: BP 162/82
[2020-05-24 06:08] LABS: CALC OSMOLALITY 276 mosm/kg (275-300); CALCIUM 8.3 mg/dL (8.5-10.1); CARBON DIOXIDE 25.9 mmol/L (21.0-32.0); CHLORIDE - SERUM 102 mmol/L (98-107); GLUCOSE 120 mg/dL (74-106); SODIUM 138 mmol/L (136-145); UREA NITROGEN 13 mg/dL (7-18)
[2020-05-24 06:09] LABS: CREATININE - SERUM 0.6 mg/dL (0.6-1.3); POTASSIUM - SERUM 3.6 mmol/L (3.5-5.1); eGFR NON AFRICAN AMERICAN > 90 mL/min (90-120)
[2020-05-24 06:12] LABS: BASOPHILS 0.3 % (0-2); EOSINOPHILS 1.3 % (0-7); HEMOGLOBIN 11.7 g/dL (12-16); IMMATURE GRANULOCYTES 0.1 % (0-5); LYMPHOCYTES 19.9 % (15-50); MCH 29.8 pg (26.0-34.0); MCHC 32.5 g/dL (31.0-37.0); MCV 91.8 fL (80.0-100.0); MEAN PLATELET VOLUME 9.3 fL (7.4-10.4); MONOCYTES 9.2 % (2-11); NEUTROPHILS 69.2 % (40-80); PLATELET COUNT 221 10x3/uL (130-400); RBC 3.92 10x6/uL (4.00-5.40); RDW 12.8 % (11.5-14.5)
[2020-05-24 06:21] LABS: WBC 7.5 10x3/uL (4.8-10.8)
[2020-05-24 08:30] VITALS: BP 136/78
[2020-05-24 11:32] LABS: INR 0.94 (0.85-1.17); PROTIME 12.6 SECONDS (11.6-15.0)
[2020-05-24 13:07] VITALS: BP 122/82
--- NOTE | 2020-05-24 13:12 | NUR ---
CALLED PHARMACY FOR YAMILETH SÁNCHEZ
--- NOTE | 2020-05-24 16:44 | NUR ---
RECEIVED PT TO ROOM VIA WC. PT IS ALERT AND ORIENTED. RT LEG VERY RED AND SWOLLEN. IV IN LEFT FA/ WRIST AREA. NO S/SX OF DISTRESS, LUNGS CLEAR TO AUSCULATION, ACTIVE BOWEL SOUNDS, PT BED IN LOWEST POSITION, CL IN REACH. ASSUME PT CARE
[2020-05-24 18:16] VITALS: BP 184/96; Ht 180.3 cm; Wt 170.9 kg
[2020-05-24 20:00] VITALS: BP 140/78
--- NOTE | 2020-05-24 22:55 | NUR ---
I have reviewed this patient and I concur with the Shift Assessment completed by the Licensed Practical Nurse today this shift.
[2020-05-25 04:00] VITALS: BP 113/71
[2020-05-25 06:27] LABS: BASOPHILS 0.2 % (0-2); EOSINOPHILS 2.8 % (0-7); HEMATOCRIT 34.8 % (36.0-48.0); HEMOGLOBIN 11.3 g/dL (12-16); IMMATURE GRANULOCYTES 0.4 % (0-5); LYMPHOCYTES 29.9 % (15-50); MCH 30.1 pg (26.0-34.0); MCHC 32.5 g/dL (31.0-37.0); MCV 92.6 fL (80.0-100.0); MEAN PLATELET VOLUME 9.4 fL (7.4-10.4); MONOCYTES 8.7 % (2-11); PLATELET COUNT 231 10x3/uL (130-400); RBC 3.76 10x6/uL (4.00-5.40); RDW 12.7 % (11.5-14.5)
[2020-05-25 06:36] LABS: WBC 5.1 10x3/uL (4.8-10.8)
[2020-05-25 06:53] LABS: ALBUMIN 2.9 g/dL (3.4-5.0); ALKALINE PHOSPHATASE 54 U/L (30-120); CALC OSMOLALITY 279 mosm/kg (275-300); CALCIUM 8.6 mg/dL (8.5-10.1); CARBON DIOXIDE 25.1 mmol/L (21.0-32.0); CHLORIDE - SERUM 105 mmol/L (98-107); CREATININE - SERUM 0.5 mg/dL (0.6-1.3); GLUCOSE 131 mg/dL (74-106); POTASSIUM - SERUM 3.3 mmol/L (3.5-5.1); PROTEIN - SERUM 6.4 g/dL (6.4-8.2); SODIUM 139 mmol/L (136-145); UREA NITROGEN 12 mg/dL (7-18); eGFR NON AFRICAN AMERICAN > 90 mL/min (90-120)
[2020-05-25 07:01] LABS: ALT (SGPT) 14 U/L (10-68)
[2020-05-25 08:07] VITALS: BP 148/94
[2020-05-25 11:17] LABS: % SATURATION 12 % (15-55); IRON 31 ug/dl (35-150); TOTAL IRON BIND CAPACITY 254 ug/dl (260-445); UNSAT IRON BIND CAPACITY 223 ug/dl (150-375)
[2020-05-25 11:58] LABS: HCG URINE NEGATIVE (NEGATIVE)
[2020-05-25 12:04] VITALS: BP 125/91
[2020-05-25 17:50] VITALS: BP 137/96
--- NOTE | 2020-05-25 18:45 | NUR ---
I have reviewed this patient and I concur with the Shift Assessment completed by the Licensed Practical Nurse today this shift.
[2020-05-25 20:00] VITALS: BP 140/102
[2020-05-26 04:00] VITALS: BP 127/83
[2020-05-26 05:40] LABS: BASOPHILS 0.4 % (0-2); EOSINOPHILS 3.4 % (0-7); HEMATOCRIT 35.8 % (36.0-48.0); HEMOGLOBIN 11.6 g/dL (12-16); IMMATURE GRANULOCYTES 0.4 % (0-5); LYMPHOCYTES 34.1 % (15-50); MCH 30.3 pg (26.0-34.0); MCHC 32.4 g/dL (31.0-37.0); MCV 93.5 fL (80.0-100.0); MEAN PLATELET VOLUME 9.7 fL (7.4-10.4); MONOCYTES 8.1 % (2-11); NEUTROPHILS 53.6 % (40-80); PLATELET COUNT 213 10x3/uL (130-400); RBC 3.83 10x6/uL (4.00-5.40); RDW 12.4 % (11.5-14.5); WBC 4.7 10x3/uL (4.8-10.8)
--- NOTE | 2020-05-26 05:47 | NUR ---
I have reviewed this patient and I concur with the Shift Assessment completed by the Licensed Practical Nurse today this shift.
[2020-05-26 06:05] LABS: ALBUMIN 2.8 g/dL (3.4-5.0); ALKALINE PHOSPHATASE 56 U/L (30-120); ALT (SGPT) 16 U/L (10-68); CALC OSMOLALITY 285 mosm/kg (275-300); CALCIUM 8.5 mg/dL (8.5-10.1); CARBON DIOXIDE 28.2 mmol/L (21.0-32.0); CHLORIDE - SERUM 107 mmol/L (98-107); GLUCOSE 129 mg/dL (74-106); POTASSIUM - SERUM 3.7 mmol/L (3.5-5.1); PROTEIN - SERUM 6.4 g/dL (6.4-8.2); SODIUM 142 mmol/L (136-145); UREA NITROGEN 15 mg/dL (7-18); eGFR NON AFRICAN AMERICAN 87 mL/min (90-120)
[2020-05-26 06:06] LABS: CREATININE - SERUM 0.8 mg/dL (0.6-1.3)
[2020-05-26 10:10] VITALS: BP 137/98
[2020-05-26] MEDS ORDERED: BACTRIM DS TAB1 EAC1 PO (11:47)
[2020-05-26] MEDS ORDERED: CLINDAMYCIN HC300 MG PO (11:47)
[2020-05-26] MEDS ORDERED: FLORAJEN3 CAPS460 MG PO (11:48)
[2020-05-26 13:50] VITALS: BP 138/80
== END 2020-05-26 15:43 | disposition home or self-care (01) | DRG 603 ==
LOC: D.ER 21:22 → D.EDHOLD 05-24 00:15 → D.MS 05-24 00:15
PROVIDERS: Family Medicine; Family Medicine Adult Medicine; Internal Medicine Hematology & Oncology; ADMIT Family Medicine; ATTEND Family Medicine
DX: L03.115 Cellulitis of right lower limb (principal); Z68.43 Body mass index [BMI] 50.0-59.9, adult; E87.6 Hypokalemia; I10 Essential (primary) hypertension; E03.9 Hypothyroidism, unspecified; E66.9 Obesity, unspecified; Z86.73 Personal history of transient ischemic attack (TIA), and cerebral infarction without residual deficits; Z86.718 Personal history of other venous thrombosis and embolism; Z79.01 Long term (current) use of anticoagulants; Z86.711 Personal history of pulmonary embolism; D64.9 Anemia, unspecified